=== PATIENT | female | born 1970 | race Caucasian/White ===

== ENCOUNTER 2018-09-13 15:50 | Emergency (ER) | payer OTHER, MEDICAID ==
[~2018-09-13] VITALS: Ht 162.6 cm; Wt 70.3 kg
[2018-09-13 15:56] VITALS: BP_SYST 118
[2018-09-13] MEDS ORDERED: KETOROLAC TROMETHAMINE 30 MG VIAL IM ONE (16:15)
[2018-09-13 17:06] VITALS: BP_SYST 118
== END 2018-09-13 17:06 | disposition home or self-care (01) ==
LOC: SED 15:50
DX: G57.62 Lesion of plantar nerve, left lower limb (principal)
CPT/HCPCS: 73630; 96372; 99284; J1885